=== PATIENT | male | born 1990 | race Caucasian/White ===

== ENCOUNTER 2025-07-18 12:55 | Inpatient (IN) | payer MEDICAID ==
[~2025-07-18] VITALS: Ht 177.8 cm; Wt 97.5 kg
[2025-07-18 13:13] VITALS: O2SAT 97
[2025-07-18] MEDS ORDERED: ONDANSETRON HCL 4MG/2ML INJ IV PRN ×2 (14:45)
[2025-07-18] MEDS ORDERED: HYDROCODONE/ACETAMINOPHEN 10/325MG TABLET PO PRN (14:45)
[2025-07-18] MEDS ORDERED: MAGNESIUM/ALUMINUM HYDROXIDE/SIMETHICONE 30ML UDC PO PRN ×2 (14:45)
[2025-07-18] MEDS ORDERED: CLONIDINE 0.1MG TABLET PO PRN ×2 (14:45)
[2025-07-18] MEDS ORDERED: ACETAMINOPHEN 325MG TABLET PO PRN ×3 (14:45)
[2025-07-18 15:15] LABS: BASOPHILS % 0.8 % (0.0-2.0); EOSINOPHILS % 0.9 % (0.0-5.0); HEMATOCRIT. 44.4 % (42.0-52.0); HEMOGLOBIN. 14.8 g/dL (14.0-18.0); LYMPHOCYTES % 33.0 % (20.0-50.0); MEAN PLATELET VOLUME 8.2 fl (7.4-10.4); MONOCYTES % 7.4 % (2.0-8.0); NEUTROPHILS % 57.9 % (40.0-76.0); PLATELET 215 x1000/uL (130-400); RED BLOOD CELL COUNT 4.68 mill/uL (4.7-6.1); RED CELL DISTRIBUTION WIDTH 13.0 % (11.6-14.6)
[2025-07-18] MEDS ORDERED: NALOXONE HCL 0.4MG/ML VIAL IV PRN (15:30)
[2025-07-18 15:32] LABS: INR 0.9
[2025-07-18 15:34] LABS: CREATININE 0.7 mg/dL (0.6-1.3); UREA NITROGEN BLOOD 10 mg/dL (9-23)
[2025-07-18] MEDS: DEXT 5%/LACTATED RINGERS 1,000 ML IV SCH (15:35)
[2025-07-18 17:38] LABS: COLOR URINE YELLOW (YELLOW); GLUCOSE URINE NEGATIVE (NEGATIVE); KETONES URINE NEGATIVE (NEGATIVE); LEUKOCYTE ESTERASE URINE TRACE (NEGATIVE); NITRITE URINE NEGATIVE (NEGATIVE); OCCULT BLOOD URINE NEGATIVE (NEGATIVE); PH URINE 6.5 (4.5-8.0); PROTEIN URINE NEGATIVE (NEGATIVE); SPECIFIC GRAVITY URINE 1.019 (1.005-1.030); UROBILINOGEN URINE 1.0 E.U./dL (0.2-1.0)
[2025-07-18 17:56] LABS: BACTERIA URINE TRACE; CLARITY URINE SL HAZY (CLEAR); RBC URINE NONE SEEN /hpf (0-2); SQUAMOUS EPITHELIAL CELL URINE 2+ /lpf (RARE/1+); WBC URINE 0-2 /hpf (0-2)
[2025-07-18 17:57] LABS: MUCUS URINE TRACE /lpf (NONE/TRACE)
[2025-07-18 18:01] LABS: *AMPHETAMINES SCREEN URINE NEGATIVE (NEGATIVE); *BARBITURATES SCREEN URINE NEGATIVE (NEGATIVE); *BENZODIAZEPINES SCREEN URINE NEGATIVE (NEGATIVE)
[2025-07-18 18:02] LABS: *COCAINE SCREEN URINE NEGATIVE (NEGATIVE); CANNABINOID URINE SCREEN NEGATIVE (NEGATIVE); ECSTASY MDMA SCREEN URINE NEGATIVE (NEGATIVE); METHADONE URINE SCREEN NEGATIVE (NEGATIVE); OPIATES URINE SCREEN NEGATIVE (NEGATIVE); PHENCYCLIDINE URINE SCREEN NEGATIVE (NEGATIVE)
[2025-07-18 20:00] VITALS: BP 115/73; PULSE 72; RESP 18; TEMP 36.6; O2SAT 98
[2025-07-18 21:59] VITALS: BP 115/73; PULSE 78; RESP 18; TEMP 36.5848
[2025-07-18] MEDS ORDERED: DEXTROSE 50% WATER 50ML SYRINGE IV PRN (22:30)
[2025-07-19] VITALS: BP 104/64; PULSE 75; RESP 18; TEMP 36.4; O2SAT 98
[2025-07-19 04:00] VITALS: BP 104/64; PULSE 75; RESP 18; TEMP 36.4; O2SAT 98
[2025-07-19] MEDS ORDERED: THROMBIN (BOVINE) 5000 UNITS/VIAL TOP ONE ×2 (06:14→09:58)
[2025-07-19] MEDS ORDERED: LIDOCAINE HCL/EPINEPHRINE 1%-EPI 1:100,000 20ML VIAL ONE ×2 (06:14→09:58)
[2025-07-19] MEDS ORDERED: GENTAMICIN SULF 40MG/ML 2ML VIAL ONE ×2 (06:14→09:58)
[2025-07-19] MEDS: BLOOD SUGAR DIAGNOSTIC STRIP TEST SCH (07:07)
[2025-07-19] MEDS: INSULIN LISPRO 100 UNITS/ML SUBCUT SCH (07:50)
[2025-07-19 08:00] VITALS: BP 106/70; PULSE 78; RESP 19; TEMP 36.6; O2SAT 98
[2025-07-19 08:55] LABS: BASOPHILS % 0.5 % (0.0-2.0); EOSINOPHILS % 1.4 % (0.0-5.0); HEMATOCRIT. 42.5 % (42.0-52.0); HEMOGLOBIN. 14.1 g/dL (14.0-18.0); LYMPHOCYTES % 36.4 % (20.0-50.0); MEAN PLATELET VOLUME 8.4 fl (7.4-10.4); MONOCYTES % 9.1 % (2.0-8.0); NEUTROPHILS % 52.6 % (40.0-76.0); PLATELET 184 x1000/uL (130-400); RED BLOOD CELL COUNT 4.50 mill/uL (4.7-6.1); RED CELL DISTRIBUTION WIDTH 13.2 % (11.6-14.6)
[2025-07-19 09:02] LABS: INR 1.0
[2025-07-19 09:19] LABS: CREATININE 0.8 mg/dL (0.6-1.3); TRIGLYCERIDE 244 mg/dL (0-150); UREA NITROGEN BLOOD 13 mg/dL (9-23)
[2025-07-19 09:20] LABS: LDL CHOLESTEROL 171 mg/dL (5-100)
[2025-07-19 09:21] LABS: PHOSPHORUS 4.8 mg/dL (2.5-4.9)
[2025-07-19 09:22] LABS: T4 FREE 1.22 ng/dL (0.89-1.76)
[2025-07-19] MEDS ORDERED: CEFAZOLIN SODIUM 1000MG/VIAL ONE (11:06)
[2025-07-19] MEDS ORDERED: ONDANSETRON HCL 4MG/2ML INJ ONE (11:06)
[2025-07-19] MEDS ORDERED: PROPOFOL 200MG/20ML VIAL IV ONE (11:06)
[2025-07-19] MEDS ORDERED: ROCURONIUM BROMIDE 10MG/ML VIAL 5ML IV ONE (11:06)
[2025-07-19] MEDS ORDERED: SUCCINYLCHOLINE CHLORIDE 200MG/10ML IV ONE (11:06)
[2025-07-19] MEDS ORDERED: MIDAZOLAM HCL 2 MG/2 ML VIAL ONE (11:06)
[2025-07-19] MEDS ORDERED: FENTANYL CITRATE/PF 50MCG/ML 2ML VIAL ONE (11:07)
[2025-07-19] MEDS ORDERED: HYDROMORPHONE HCL/PF 2MG/ML INJ ONE (11:44)
[2025-07-19] MEDS ORDERED: HYDRALAZINE 20MG/ML VIAL IV PRN ×3 (11:45→12:15)
[2025-07-19] MEDS ORDERED: MORPHINE SULFATE 4 MG/ML INJ (FOR IV/IM USE) IV PRN (11:45)
[2025-07-19] MEDS ORDERED: ONDANSETRON HCL 4MG/2ML INJ IV PRN (12:15)
[2025-07-19] MEDS ORDERED: HYDROMORPHONE HCL/PF 1MG/ML INJ IV PRN (12:15)
[2025-07-19] MEDS ORDERED: MEPERIDINE HCL/PF 25MG/ML CPJ IV PRN (12:15)
[2025-07-19] MEDS ORDERED: LABETALOL 5MG/ML 4ML INJ IV PRN (12:15)
[2025-07-19] MEDS ORDERED: ACETAMINOPHEN 1,000MG/100ML PREMIX IV PRN (12:15)
[2025-07-19] MEDS ORDERED: FAMOTIDINE 20MG/2ML VIAL IV PRN (12:15)
[2025-07-19] MEDS ORDERED: HYDRALAZINE 5 MG in SODIUM CHLORIDE 0.9% 50 ML IV PRN (12:45)
[2025-07-19] MEDS ORDERED: CEFAZOLIN SODIUM 1000MG/VIAL IV SCH (14:00)
[2025-07-19] MEDS: CEFAZOLIN 1000MG PREMIX 50ML IV SCH (14:00)
[2025-07-19 16:00] VITALS: BP 120/71; PULSE 88; RESP 18; TEMP 36.7; O2SAT 97
[2025-07-19] MEDS: HYDROCODONE/ACETAMINOPHEN 10/325MG TABLET PO PRN (17:21)
[2025-07-19 20:00] VITALS: BP 112/69; PULSE 102; RESP 18; TEMP 36.9; O2SAT 95
[2025-07-20] VITALS: BP 100/60; PULSE 88; RESP 18; TEMP 36.8; O2SAT 96
[2025-07-20 04:00] VITALS: BP 112/67; PULSE 80; RESP 18; TEMP 36.6; O2SAT 98
[2025-07-20 08:00] VITALS: BP 106/66; PULSE 76; RESP 17; TEMP 36.6; O2SAT 95
[2025-07-20 12:00] VITALS: BP 116/79; PULSE 79; RESP 19; TEMP 36.4; O2SAT 98
[2025-07-20 16:00] VITALS: BP 122/55; PULSE 85; RESP 18; TEMP 36.4; O2SAT 96
[2025-07-20 20:00] VITALS: BP 101/65; PULSE 78; RESP 20; TEMP 36.8; O2SAT 96
[2025-07-20] MEDS: ACETAMINOPHEN 325MG TABLET PO PRN (20:21)
[2025-07-21] VITALS: BP 105/57; PULSE 80; RESP 19; TEMP 36.5; O2SAT 97
[2025-07-21 04:00] VITALS: BP 100/62; PULSE 78; RESP 18; TEMP 36.3; O2SAT 98
[2025-07-21 08:00] VITALS: BP 108/68; PULSE 73; RESP 17; TEMP 36.3; O2SAT 98
[2025-07-21 09:12] VITALS: BP 108/68; PULSE 73; RESP 17; TEMP 97.3
[2025-07-21 09:12] LABS: BASOPHILS % 0.2 % (0.0-2.0); EOSINOPHILS % 0.7 % (0.0-5.0); HEMATOCRIT. 38.2 % (42.0-52.0); HEMOGLOBIN. 12.6 g/dL (14.0-18.0); LYMPHOCYTES % 34.4 % (20.0-50.0); MEAN PLATELET VOLUME 8.5 fl (7.4-10.4); MONOCYTES % 10.9 % (2.0-8.0); NEUTROPHILS % 53.8 % (40.0-76.0); PLATELET 152 x1000/uL (130-400); RED BLOOD CELL COUNT 4.03 mill/uL (4.7-6.1); RED CELL DISTRIBUTION WIDTH 13.2 % (11.6-14.6)
[2025-07-21 09:32] LABS: CREATININE 0.7 mg/dL (0.6-1.3)
[2025-07-21 09:34] LABS: UREA NITROGEN BLOOD 11 mg/dL (9-23)
[2025-07-21 09:36] LABS: PHOSPHORUS 3.9 mg/dL (2.5-4.9)
[2025-07-21 10:30] VITALS: BP 108/68; PULSE 73; RESP 17
== END 2025-07-21 12:25 | disposition home or self-care (01) | DRG 310 ==
LOC: ER 12:55 → 6EST 14:15 → EDBEDREQ 14:27 → EDBEDREQTM 14:27
PROVIDERS: ADMIT Student in an Organized Health Care Education/Training Program; ATTEND Student in an Organized Health Care Education/Training Program
PROC: 0SB40ZZ Excision of Lumbosacral Disc, Open Approach (ICD-10-PCS; principal; 2025-07-19)
PROC: 4A11X4G Monitoring of Peripheral Nervous Electrical Activity, Intraoperative, External Approach (ICD-10-PCS; 2025-07-19)
DX: M51.27 Other intervertebral disc displacement, lumbosacral region (principal); R53.2 Functional quadriplegia; E66.811 Obesity, class 1; Z68.30 Body mass index [BMI] 30.0-30.9, adult; M48.07 Spinal stenosis, lumbosacral region; E78.1 Pure hyperglyceridemia; G89.29 Other chronic pain; R26.9 Unspecified abnormalities of gait and mobility; M79.605 Pain in left leg; R20.0 Anesthesia of skin; R20.2 Paresthesia of skin
CPT/HCPCS: 36415; 71045; 72100; 72148; 76000; 80048; 80061; 80305; 81003; 82962; 83036; 83735; 84100; 84439; 84443; 85025; 86850; 86900; 88304; 88311; 93005; 95925; 95926; 95928; 95929; 97116; 97161; 97166; 97530; 99285; J0330; J0690; J1171; J1580; J1815; J2004; J2250; J2270; J2405; J2704; J3010; J3490